=== PATIENT | female | born 1980 | race Caucasian/White ===

== ENCOUNTER 2020-11-03 09:50 | Outpatient (CLI) | payer OTHER, SELFPAY ==
--- NOTE | ~2020-11-03 | XR_ITS ---
EXAMINATION: XR abdomen/kub 1V INDICATION: Left ureteral stone TECHNIQUE: Supine view of the abdomen is obtained COMPARISON: None FINDINGS: There are at least five left kidney stones which measure up to 3 mm. At least three stones are seen in the lower pole of the right kidney which measure up to 3 mm. There are multiple phlebolit hs in the pelvis. A 4 mm calcification projects at the expected location of the left distal ureter. T he bowel gas pattern is normal. IMPRESSION: 1. 4 mm calcification of the left pelvis which could be a phlebolith or within the distal ureter. 2. Bilateral nephrolithiasis. Reviewed, dictated and finalized at location A. ING ENFORCER
== END 2020-11-03 09:51 | disposition home or self-care (01) ==
LOC: ANHIMG 09:56
PROVIDERS: Visit Provider Urology
DX: N20.2 Calculus of kidney with calculus of ureter (principal)
CPT/HCPCS: 74018

== ENCOUNTER 2021-03-06 08:29 | Outpatient (CLI) | payer OTHER, SELFPAY ==
--- NOTE | ~2021-03-06 | MM_ITS ---
EXAMINATION: MM screening edouard BI w lamont HISTORY: Baseline screening mammogram TECHNIQUE: Craniocaudal and mediolateral oblique 3-D tomosynthesis images were obtained and synthetic 2-D images were generated. CAD analysis was submitted and interpreted. COMPARISON: None, baseline BREAST PARENCHYMAL COMPOSITION: There are scattered areas of fibroglandular density. FINDINGS: There is no evidence of suspicious mass, calcification, or architectural distortion to sugg est malignancy in either breast. IMPRESSION: 1. No mammographic evidence of malignancy. 2. Recommend routine screening mammography in one year. BI-RADS Category 1: Negative Reviewed, dictated and finalized at location A.
== END 2021-03-06 08:30 | disposition home or self-care (01) ==
PROVIDERS: Visit Provider Nurse Practitioner
DX: Z12.31 Encounter for screening mammogram for malignant neoplasm of breast (principal)
CPT/HCPCS: 77063; 77067

== ENCOUNTER → 2022-06-14 09:11 | Outpatient (CLI) | payer OTHER, SELFPAY ==
--- NOTE | ~2022-06-14 | US_ITS ---
EXAMINATION: US retroperitoneal comp DATE: 06/14/2022 09:35 INDICATION: Calculus of ureter TECHNIQUE: Multiple ultrasound grayscale images of the kidneys were obtained. COMPARISON: None. FINDINGS: The right kidney measures 10.8 x 5.1 x 5.0 cm. The left kidney measures 10.8 x 5.3 x 4.1 cm. The kidn eys demonstrate normal echogenicity. There is no hydronephrosis in either kidney. No shadowing stone s identified. Several small stones seen on subsequent KUBs are likely too small to be visualized on u ltrasound. The bladder is normal. IMPRESSION: 1. Normal kidneys without hydronephrosis. Nephrolithiasis evident on subsequent KUB not evident on t he current study likely due to the small size of the stones. Reviewed, dictated and finalized at location A. IMPRESSION: 1. Normal kidneys without hydronephrosis. Nephrolithiasis evident on subsequen t KUB not evident on the current study likely due to the small size of the ston es.
--- NOTE | ~2022-06-14 | XR_ITS ---
EXAMINATION: XR abdomen/kub 1V DATE: 06/14/2022 09:37 INDICATION: Calculus of ureter TECHNIQUE: A supine view of the abdomen on 2 radiographs was obtained. COMPARISON: 11/03/2020 FINDINGS: And seen are multiple small stones at both kidneys. There are at least 10 stones in the left kidney t he largest measuring up to 3-4 mm. There are at least 4 stones in the lower right kidney measuring up to 3 mm although sensitivity for tiny stones is decreased in the right due to multiple stool and gas in the superimposed colon. Multiple unchanged phleboliths in the pelvis. There is a new more irregul ar appearing 4 mm density in the left hemipelvis located along a cluster of phleboliths which is susp icious for a distal left ureteral stone. No dilated loops of bowel to suggest obstruction. IMPRESSION: 1. Bilateral nephrolithiasis and possible 4 mm distal left ureteral stone. Reviewed, dictated and finalized at location A.
== END ==
PROVIDERS: PCP Urology; Visit Provider Urology
DX: N20.1 Calculus of ureter (principal)
CPT/HCPCS: 74018; 76770

== ENCOUNTER 2023-08-05 13:06 | Outpatient (CLI) | payer OTHER, SELFPAY ==
--- NOTE | ~2023-08-05 | XR_ITS ---
EXAMINATION: XR abdomen/kub 1V INDICATION: Left ureteral stone TECHNIQUE: Supine views of the abdomen were obtained on 2 radiographs. COMPARISON: 06/14/2022 FINDINGS: There are at least eight stones of the left kidney which measure up to 4 mm. There are at l east three stones of the right kidney which measure up to 3 mm. No stones are identified along the ex pected courses of the ureters or within the urinary bladder. There are phleboliths of the pelvis. The bowel gas pattern is normal. The visualized lung bases are clear. IMPRESSION: 1. Bilateral nephrolithiasis. Reviewed, dictated and finalized at location B.
== END 2023-08-05 13:07 | disposition home or self-care (01) ==
PROVIDERS: Visit Provider Urology
DX: N20.1 Calculus of ureter (principal)
CPT/HCPCS: 74018

== ENCOUNTER → 2023-10-01 08:22 | Outpatient (CLI) | payer OTHER, SELFPAY ==
--- NOTE | ~2023-10-01 | MM_ITS ---
EXAMINATION: MM screening edouard BI w lamont HISTORY: Screening TECHNIQUE: Craniocaudal and mediolateral oblique 3-D tomosynthesis images were obtained and synthetic 2-D images were generated. CAD analysis was submitted and interpreted. COMPARISON: 03/06/2021 BREAST PARENCHYMAL COMPOSITION: There are scattered areas of fibroglandular density. FINDINGS: There are new asymmetries in the central aspect of the left breast on CC view. The right br east is stable without evidence for malignancy. IMPRESSION: 1. New left breast asymmetries. 2. Additional mammographic views and possible breast ultrasound are recommended. BI-RADS Category 0: Incomplete: Needs additional imaging evaluation. Reviewed, dictated and finalized at location A. 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 New left breast asymmetries. 2. Additional mammographic views and possible breast ultrasound are recommended . BI-RADS Category 0: Incomplete: Needs additional imaging evaluation.
== END ==
PROVIDERS: PCP Obstetrics & Gynecology Gynecology; Visit Provider Obstetrics & Gynecology Gynecology
DX: Z12.31 Encounter for screening mammogram for malignant neoplasm of breast (principal); R92.8 Other abnormal and inconclusive findings on diagnostic imaging of breast
CPT/HCPCS: 77063; 77067

== ENCOUNTER → 2023-10-21 08:46 | Outpatient (CLI) | payer OTHER, SELFPAY ==
--- NOTE | ~2023-10-21 | MM_ITS ---
EXAMINATION: MM diagnostic edouard LT w lamont HISTORY: New left breast mammographic asymmetries reported in central aspect of left breast on screen ing craniocaudal view of 10/01/2023 TECHNIQUE: Additional 3-D tomosynthesis images of the left breast were performed and synthetic 2-D im ages were generated. CAD analysis was submitted and interpreted. COMPARISON: 10/01/2023ilateral screening mammogram FINDINGS: The asymmetries reported in the central aspect of the left breast on screening critical vie w of 10/01/2023 are no longer present on coned compression view of this area. No suspicious mass or ar chitectural distortion, microcalcifications, skin thickening or retraction is detected. IMPRESSION: 1. No mammographic evidence of malignancy 2. Routine mammographic screening is recommended BI-RADS Category 1: Negative Reviewed, dictated and finalized at location A. ALARM INSPECTOR
== END ==
PROVIDERS: PCP Obstetrics & Gynecology Gynecology; Visit Provider Obstetrics & Gynecology Gynecology
DX: R92.8 Other abnormal and inconclusive findings on diagnostic imaging of breast (principal)
CPT/HCPCS: 77061; 77065; G0279

== ENCOUNTER 2025-01-30 08:41 | Outpatient (CLI) | payer OTHER, SELFPAY ==
--- NOTE | ~2025-01-30 | MMUS_ITS ---
EXAMINATION: MM diagnostic edouard BI w lamont, US breast BI complete HISTORY: Bilateral breast palpable lumps TECHNIQUE: Additional 3-D tomosynthesis images of the breasts were performed and synthetic 2-D images were generated. CAD analysis was submitted and interpreted. High resolution bilateral complete breas t ultrasound was performed. COMPARISON: Comparison to multiple prior studies sequentially, with oldest reviewed study dated 03/06. BREAST PARENCHYMAL COMPOSITION: Dense: The breasts are heterogeneously dense, which may obscure small masses FINDINGS: MAMMOGRAPHIC FINDINGS: The breasts are stable. No new masses, calcifications or architectural distortion in this suggest mal ignancy. ULTRASOUND: Complete US of all 4 quadrants of the breast/s and retroareolar region was reviewed. In the right milvia ast at 11:00, 4 cm from the nipple there is a normal 11 mm intramammary lymph node. No suspicious mas ses in either breast to suggest malignancy. IMPRESSION: 1. No evidence for malignancy in either breast. 2. Routine yearly screening mammogram and regular clinical breast examination are recommended. BI-RADS Category 2: Benign finding(s). Reviewed, dictated and finalized at location A. IMPRESSION: 1. No evidence for malignancy in either breast. 2. Routine yearly screening mammogram and regular clinical breast examination a re recommended. BI-RADS Category 2: Benign finding(s).
== END 2025-01-30 08:42 | disposition home or self-care (01) ==
LOC: MICIMG 08:42
PROVIDERS: PCP Nurse Practitioner; Visit Provider Nurse Practitioner
DX: N63.10 Unspecified lump in the right breast, unspecified quadrant (principal); N63.20 Unspecified lump in the left breast, unspecified quadrant
CPT/HCPCS: 76641; 77062; 77066; G0279

== ENCOUNTER 2025-03-07 11:40 | Emergency (ER) | payer OTHER, SELFPAY ==
[2025-03-07 11:52] VITALS: BP 117/80; PULSE 95; RESP 16; TEMP 36.8; O2SAT 100
--- NOTE | 2025-03-07 12:19 | ED_ITS ---
HPI - Skin/Abscess/Foreign Bdy General Chief complaint: Skin/Abscess/Foreign Body Stated complaint: Skin Irritation Time Seen by Provider: 03/07/25 12:19 Source: patient, RN notes reviewed and old records reviewed Mode of arrival: ambulatory Limitations: no limitations History of Present Illness HPI narrative: 45-year-old female presents to the [facility] with a rash to the right axilla area. States it is a burning itching sensation. Started 4 days ago. Has been using cortisone cream without relief. Onset (ago): day(s) (4) Related Data Home Medications Medication Instructions Recorded Confirmed Last Taken Type buspirone 15 mg tablet 15 mg PO BID 09/15/19 03/07/25 Unknown History spironolactone 100 mg tablet 100 mg PO DAILY 09/15/19 03/07/25 Unknown History Allergies Allergy/AdvReac Type Severity Reaction Status Date / Time amoxicillin Allergy Unknown Rash Verified 03/07/25 11:52 codeine Allergy Unknown Unknown Verified 03/07/25 11:52 Review of Systems Review of Systems: All systems reviewed & are unremarkable except as noted in HPI and below Constitutional: Constitutional: Reports no additional constitutional complaints ENT: Reports system reviewed and no additional complaints, except as documented Cardiovascular: Cardiovascular: Reports no additional cardiovascular complaints, Denies chest pain and Denies dyspnea Respiratory: Respiratory: Reports no additional respiratory complaints, Denies chest congestion, Denies cough and Denies dyspnea Musculoskeletal: Musculoskeletal: Reports no additional musculoskeletal complaints Integumentary/Breasts: Skin/Breast: Reports as per HPI PMFSH Family History Family History Father Family history of premature coronary heart disease, Onset Age: 60 Hypertension Family history of elevated blood lipids Family history of alcoholism Patient's father is Social History Social History Smoking status: Never smoker Alcohol intake: never Comments At the time of my signature, I reviewed and agree with the nursing past medical, surgical, social, and family history. There is no relevant family history pertinent to the patient complaint. Exam Const: General: cooperative, healthy appearing, comfortable, no acute distress, well developed, alert and well nourished Nutritional Appearance: well nourished Orientation/consciousness: patient oriented x3 Limitations: no limitations HENMT: Head: normal to inspection Eyes: General: appearance normal, both eyes and all related structures Alignment and Position: alignment normal Neck: Neck: normal visual inspection, full ROM, no lymphadenopathy and no meningeal signs Chest: Chest palpation & inspection: normal inspection of the chest Resp: Effort & Inspection: normal respiratory effort and able to speak in complete sentences Auscultation: clear to auscultation bilaterally, no crackles, no rales, no rhonchi and no wheezes Cardio: Rate: regular rate Skin: General skin exam: normal color and no rashes or lesions noted Lesions: lesion noted ( Right axilla, vesicular lesions) Neuro: General: patient oriented x3, gait normal, moves all extremities and no meningeal signs Cognition (Neuro): normal cognition Speech: normal speech Gait exam (Neuro): Normal gait present Extrem: General: normal to inspection, full ROM, capillary refill normal and normal gait Psych: Appearance: grossly normal and well kempt Mental Status: mental status grossly normal Speech and movement: Normal speech and movement present and Clear speech present Affect: normal affect Attitude: cooperative Course Course Level of Care: Express Care Visit Vital Signs Vital signs: Vital Signs Temperature 98.3 F 03/07/25 11:52 Pulse Rate 95 03/07/25 11:52 Respiratory Rate 16 03/07/25 11:52 Blood Pressure 117/80 03/07/25 11:52 Pulse Oximetry 100 03/07/25 11:52 Temperature 98.3 F 03/07/25 11:52 Pulse Rate 95 03/07/25 11:52 Respiratory Rate 16 03/07/25 11:52 Blood Pressure 117/80 03/07/25 11:52 Pulse Oximetry 100 03/07/25 11:52 Reviewed MDM - Skin/Abscess/Foreign Bdy MDM Narrative Medical decision making narrative: patient sitting in exam. Patient is nontoxic, vitals are stable. Patient presents with a rash to the right axilla consistent with shingles. Discussed signs and symptoms, importance of staying away from S people that are very old, very young, or immunocompromised offered antiviral but out of the 3 day window these are less effective, she declined at this time patient appropriate for outpatient treatment with close follow Differential Diagnosis Differential diagnosis: Likely abscess of skin or subcutaneous tissue, viral exanthem, urticaria, herpes zoster, cellulitis, eczema, insect bites, impetigo and contact dermatitis Critical Care Time Critical Care Time Critical Care Time: No Discharge Plan Discharge Clinical Impression: Shingles rash Qualifiers: Herpes zoster complications: without complications Qualified Code(s): B02.9 - Zoster without complications Patient Disposition: Home Condition: Stable Instructions: Antibiotic Form, Shingles (ED) Additional Instructions: keep area clean and dry. Wash with warm soapy water. Pat dry. Take Tylenol as needed for pain follow-up with primary care provider please read handout given in regards to shingles Patient Language: Zambian Prescriptions: No Action spironolactone 100 mg Tablet 100 mg PO DAILY buspirone 15 mg Tablet 15 mg PO BID Follow-up/Referrals: PHYSICIAN,CAMERA CONTROL OPERATOR [Primary Care Provider] - Stand Alone Forms: Work/School Release IP Time of Disposition: 12:32
== END 2025-03-07 12:38 | disposition home or self-care (01) ==
PROVIDERS: Emergency Provider Nurse Practitioner
DX: B02.9 Zoster without complications (principal); Z79.899 Other long term (current) drug therapy
CPT/HCPCS: 99211; G0463

== ENCOUNTER 2025-04-08 08:21 | Emergency (ER) | payer OTHER, SELFPAY ==
--- NOTE | 2025-04-08 08:24 | ED_ITS ---
HPI - Female Genitourinary General Chief complaint: Urogenital-Female Stated complaint: UTI SYMPTOMS Time Seen by Provider: 04/08/25 08:45 Source: patient, RN notes reviewed and old records reviewed Mode of arrival: ambulatory Limitations: no limitations History of Present Illness HPI Narrative: 45-year-old female presents to the [facility] with complaints of 1 day history frequency and urgency as well as lower abdominal pressure. Denies any abdominal pain. No CVA tenderness. Denies fevers. Denies nausea vomiting. Reports that she was treated with Macrobid last week through telehealth for a UTI. States she was better for 3 days and symptoms have returned. Related Data Home Medications ?Medication ?Instructions ?Recorded ?Confirmed ?Last Taken ?Type buspirone 15 mg tablet 15 mg PO BID 09/15/19 04/08/25 Unknown History spironolactone 100 mg tablet 100 mg PO DAILY 09/15/19 04/08/25 Unknown History Allergies Allergy/AdvReac Type Severity Reaction Status Date / Time amoxicillin Allergy Unknown Rash Verified 04/08/25 08:31 codeine Allergy Unknown Unknown Verified 04/08/25 08:31 Review of Systems Review of Systems: All systems reviewed & are unremarkable except as noted in HPI and below Constitutional: Constitutional: Reports no additional constitutional complaints ENT: Reports system reviewed and no additional complaints, except as d ocumented Cardiovascular: Cardiovascular: Reports no additional cardiovascular complaints, Denies chest pain and Denies dyspnea Respiratory: Respiratory: Reports no additional respiratory complaints, Denies chest congestion, Denies cough and Denies dyspnea Genitourinary: Genitourinary: Reports as per HPI Musculoskeletal: Musculoskeletal: Reports no additional musculoskeletal compla ints Integumentary/Breasts: Skin/Breast: Reports system reviewed and no additional complaints, except as docu PMFSH Family History Family History Father Family history of premature coronary heart disease, Onset Age: 60 Hypertension Family history of elevated blood lipids Family history of alcoholism Patient's father is Social History Social History Smoking status: Never smoker Alcohol intake: never Comments At the time of my signature, I reviewed and agree with the nursing past medical, surgical, social, and family history. There is no relevant family history pertinent to the patient complaint. Exam Const: General: cooperative, healthy appearing, comfortable, no acute distress, well developed, alert and well nourished Nutritional Appearance: well nourished Orientation/consciousness: patient oriented x3 Limitations: no limitations HENMT: Head: normal to inspection Eyes: General: appearance normal, both eyes and all related structures Alignment and Position: alignment normal Neck: Neck: normal visual inspection, full ROM, no lymphadenopathy and no meningeal signs Chest: Chest palpation & inspection: normal inspection of the chest Resp: Effort & Inspection: normal respiratory effort and able to speak in complete sentences Auscultation: clear to auscultation bilaterally, no crackles, no rales, no rhonchi and no wheezes Cardio: Rate: regular rate GI: GI Palp: No abdominal tenderness : General: Yes no CVA tenderness Skin: General skin exam: normal color and no rashes or lesions noted Neuro: General: patient oriented x3, gait normal, moves all extremities and no meningeal signs Cognition (Neuro): normal cognition Speech: normal speech Gait exam (Neuro): Normal gait present Extrem: General: normal to inspection, full ROM, capillary refill normal and normal gait Psych: Appearance: grossly normal and well kempt Mental Status: mental status grossly normal Speech and movement: Normal speech and movement present and Clear speech present Affect: normal affect Attitude: cooperative Course Course Level of Care: Express Care Visit Vital Signs Vital signs: Vital Signs Temperature 97.9 F 04/08/25 08:30 Pulse Rate 91 04/08/25 08:30 Respiratory Rate 16 04/08/25 08:30 Blood Pressure 110/82 04/08/25 08:30 Pulse Oximetry 100 04/08/25 08:30 Oxygen Delivery Room Air 04/08/25 08:30 Temperature 97.9 F 04/08/25 08:30 Pulse Rate 91 04/08/25 08:30 Respiratory Rate 16 04/08/25 08:30 Blood Pressure 110/82 04/08/25 08:30 Pulse Oximetry 100 04/08/25 08:30 Oxygen Delivery Room Air 04/08/25 08:30 Reviewed MDM - Female Genitourinary MDM Narrative Medical decision making narrative: Patient sitting in exam room. Patient is nontoxic, vitals are stable. Patient presents with urinary symptoms x1 day. Leukocytes noted in urine. Recently treated with Macrobid for 5 days, symptoms returned. Patient has an allergy to amoxicillin Will treat with Bactrim. Culture has been sent. Patient appropriate for outpatient treatment with close follow Discharge instructions reviewed with patient, as well as provided in writing per nursing staff. The instructions also include specific and strict return/GO TO THE ER as well as f/u information. All questions have been answered, and the patient deny any further questions with discharge and discharge plan. Some parts of this dictation were generated by voice recognition software and may contain typographical and/or grammatical inaccuracies. Differential Diagnosis Differential diagnosis: Likely urinary tract infection and cystitis Lab Data Labs: Lab Results 04/08/25 Range/Units 08:36 POC Urine Color Yellow POC Urine Clarity Cloudy POC Urine pH 7.0 POC Ur Specif [place] 1.020 POC Urine Protein 2+ (Negative) POC Ur Glucose (UA) Negative (Negative) POC Urine Ketones Negative (Negative) POC Urine Blood 2+ (Negative) POC Urine Nitrite Negative (Negative) POC Urine Bilirubin Negative (Negative) POC Urine Urobilinogen 0.2 POC U Leukocyte Esteras 3+ (Negative) Reviewed Critical Care Time Critical Care Time Critical Care Time: No Discharge Plan Discharge Clinical Impression: Urinary tract infection Qualifiers: Urinary tract infection type: acute cystitis Hematuria presence: with hematuria Qualified Code(s): N30.01 - Acute cystitis with hematuria Patient Disposition: Home Condition: Stable Instructions: Antibiotic Form, Urinary Tract Infection in Women (ED) Additional Instructions: Increased water intake Take Tylenol as needed for pain Take antibiotic as prescribed Today your urine dip showed a probability of a UTI. You have been prescribed an antibiotic. Your urine will be sent to our lab for a culture. If at that time a bacteria grows that is not covered by the antibiotic prescribed you will be notified. Follow-up with primary care For new or worsening symptoms go directly to the emergency room Patient Language: Surinamese Prescriptions: New sulfamethoxazole-trimethoprim [Bactrim DS] 800-160 mg tablet 1 tablet PO Q12H Qty: 10 0RF No Action spironolactone 100 mg Tablet 100 mg PO DAILY buspirone 15 mg Tablet 15 mg PO BID Follow-up/Referrals: Leesa Arnold MD [Primary Care Provider] - 1 Week (express care follow u ) Time of Disposition: 08:53
[2025-04-08 08:30] VITALS: BP 110/82; PULSE 91; RESP 16; TEMP 36.6; O2SAT 100
[2025-04-08 08:46] LABS: EDUAAPPEAR Cloudy; EDUABILI Negative (Negative); EDUABLOOD 2+ (Negative); EDUACOLOR1 Yellow; EDUAGLUCOSE Negative (Negative); EDUAKETONE Negative (Negative); EDUALEUKO 3+ (Negative); EDUANITRATE Negative (Negative); EDUAPROTEIN 2+ (Negative); EDUAUROBILI 0.2
== END 2025-04-08 08:59 | disposition home or self-care (01) ==
PROVIDERS: Emergency Provider Nurse Practitioner; PCP Obstetrics & Gynecology Gynecology
DX: N30.01 Acute cystitis with hematuria (principal)
CPT/HCPCS: 81003; 87086; 87186; 99213; G0463

== ENCOUNTER 2025-05-06 11:43 | Outpatient (CLI) | payer OTHER, SELFPAY ==
--- NOTE | ~2025-05-06 | US_ITS ---
Pelvic ultrasound. Clinical History: Abnormal uterine bleeding Technique: Realtime transabdominal scanning of the pelvis was performed. Color flow Doppler and Doppl er spectral analysis were performed. Findings: The uterus is anteverted. The endometrial stripe has a thickness of 8 mm. No focal mass is identified. The right ovary measures 1.9 x 1.5 x 1.5 cm. No significant right ovarian or adnexal mass is seen. The left ovary measures 3.3 x 2.2 x 2.5 cm. No significant left ovarian or adnexal mass is seen. There is no evidence of free fluid in the cul de sac. Impression: No significant abnormality seen. Reviewed, dictated and finalized at location . Impression: No significant abnormality seen.
== END 2025-05-06 11:44 | disposition home or self-care (01) ==
LOC: MICIMG 11:44
PROVIDERS: PCP Obstetrics & Gynecology Gynecology; Visit Provider Obstetrics & Gynecology Gynecology
DX: N93.8 Other specified abnormal uterine and vaginal bleeding (principal)
CPT/HCPCS: 76856

== ENCOUNTER 2025-06-03 02:25 | Day surgery (SDC) | payer OTHER, SELFPAY ==
[2025-05-22 16:47] VITALS: BMI 25.0
--- NOTE | 2025-05-22 16:52 | SUR.PREOP ---
Report to the Outpatient Waiting Room, entrance under the green pavilion located off [facility], at time 0615 on date 06/03/25. Planned Procedure Time: 08.? Time changes happen often and if your time is changed the preop area will call you the afternoon before. - You and your visitor will be asked to self-screen and do not enter if you have any COVID symptoms. Please call surgeon if you need to reschedule. - A mask is optional within the hospital at this time. Patients may have clear liquids (water, carbonated beverages, clear teas, apple juice) until 3 hours prior to surgery with a maximum of 20 ounces. - No food from midnight until time of surgery and no smoking, or chewing tobacco (or any form of nicotine). No chewing gum, candy or mints. - Infants may have breast milk until 4 hours before surgery, formula 6 hours prior to surgery. - Children will be allowed to drink immediately following surgery.? If applicable, please bring a bottle or sippy cup to assist with drinking. Juice, water, soda, and popsicles are readily available.? For infants on formula, please bring formula the day of surgery.? Pacifiers are allowed. Take only the following medications with a SIP of water on the morning of surgery: buspar DO NOT STOP ANY OF YOUR OTHER PRESCRIPTION MEDICATIONS PRIOR TO SURGERY EXCEPT THE FOLLOWING Hold all vitamins and supplements for 3 days per anesthesiologist. Medications to discontinue per physician hold all supplements and vitamins 3 days prior Date to take last dose Please no make-up, nail korean, hairspray, perfume, deodorant, or body powder the day of surgery.? No jewelry (including any body piercings) or valuables the day of surgery, leave them at home.? Please take a shower or bath the night before, or the morning of, surgery with an antibacterial soap.? Wear comfortable, loose fitting clothing.? Children are encouraged to wear pajamas. - Jewelry must be removed prior to entering the operating room.? Rings and piercings that are not removed may be cut off. - The hospital will not accept responsibility for valuables.? - Please leave all valuables, including medications, at home the day of surgery. If you are going home after surgery, a licensed regional otr company driver must drive you home.? - NO public transportation without another adult if you receive anesthesia. - We recommend that an adult stay with you for 24 hours following discharge. - We also recommend that you do not drive, make important decision, drink alcoholic beverages, or take any drugs that were not prescribed by your health care provider for at least 24 hours after your discharge time. For Pediatric surgeries, we recommend two adults accompany the child home. Follow any additional instructions given to you from your surgeon. Telephone instructions given to __patient__and asked if any additional questions and then verbalized understanding. Patient advised to call surgeon office or pre surgery nurse liaison [phone] if any additional questions.
--- OUTSIDE RECORDS SUMMARY | 2025-06-03 02:28 | XMS_ITS | Clinical Summary ---
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 Gender Identity Not on file Sexual Orientation Not on file Plan of Treatment Health Maintenance Due Date Last Done Comments Hepatitis C Virus (HCV) Screening 1980 Hepatitis B Immunization (1 of 3 - 19+ 3-dose series) 2000 Pap Smear 2002 Human Papillomavirus (HPV) Immunization (1 - 3-dose SCDM series) 2008 Cervical Cancer Screening (CCS) 2011 HPV/Cotest 2011 SARS-COV-2 Immunization ( season) 2024 10/08/2021, 01/14/2021, 12/17/2020 Influenza Immunization (#1) 2025 Respiratory Syncytial Virus (RSV) Immunization (Adult) (1 - 1-dose 75+ series) 2056 DTaP/Tdap/Td Immunization Discontinued 2018, 11/24/2015, 06/07/2005 TdaP Immunization Completed 09/15/2019, 11/24/2015 Meningococcal Immunization (ACWY) Aged Out No longer eligible based on patient's age to complete this topic Pneumococcal Immunization Combined Aged Out No longer eligible based on patient's age to complete this topic Rotavirus Immunization Aged Out No lo nger eligible based on patient's age to complete this topic
--- OUTSIDE RECORDS SUMMARY | 2025-06-03 02:28 | XMS_ITS | Clinical Summary ---
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 Gender Identity Not on file Sexual Orientation Not on file Plan of Treatment Health Maintenance Due Date Last Done Comments Cervical Cancer Screening Pa p Smear (Age 30 to 64) Every 3 Years 1981 Annual Physical 1984 Hepatitis C 1999 DTaP, Tdap and Td Vaccines ( 1 - Tdap) 2000 Hepatitis B Vaccines (1 of 3 - 19+ 3-dose series) 2000 HPV Vaccines (1 - 3-dose SCD M series) 2008 Cervical Cancer Screening Pa p with HPV Testing (Age 30 to 64) Every 5 Years 2011 Cervical Cancer Screening with HPV 2011 Mammogram Screening 2021 COVID-19 Vaccine (2023-2 5 season) 2024 Meningococcal B Vaccine Aged Out No l onger eligible based on patient's age to complete this topic Meningococcal Vaccine Aged Out No saad lashon eligible based on patient's age to complete this topic Pneumococcal Vaccine: Pediat rics (0 to 5 Years) and At-Risk Patients (6 to 49 Years) Aged Out No longer eligible b ased on patient's age to complete this topic RSV Immunizations Under 20 Months Aged Out No longer eligible based on patient's age to complete this topic Insurance [employer]ET[employer] [facility] Care Teams Natural Gas Technician Relationship Specialty Start Date End Date None, Provider, PCP - General 10/14/20
--- NOTE | 2025-06-03 07:18 | WPDHPUPDATE1 ---
History and Physical Update Update Date/Time: 06/03/25 07:18 History and Physical has been reviewed, including an updated exam of the patient. There are NO changes in the patient's condition. Risks, benefits, and alternatives have been discussed and questions answered. Patient agrees to proceed with procedure.
--- NOTE | 2025-06-03 07:19 | PM.HPGS ---
History of Present Illness History of Present Illness Consent: Risks, benefits, and alternatives have been discussed and questions answered. Patient agrees to proceed with procedure. Chief complaint: Menorrhagia Narrative: Karen Meyer is a 45 year old female with sporadic menses. In addition she was changing her menstrual cup every 6 to 8 hours. Pelvic ultrasound was normal. It was recommended to undergo further workup with D&C hysteroscopy. Risks infection, bleeding, perforation, and possible pathology are reviewed. Due to prior history of severe nausea after a procedure the patient was very hesitant to proceed. The patient did agree to proceed. She will discuss with Anesthesia as the possible medication options to decrease her nausea. Patient voices understanding and agrees to proceed Review of Systems Review of Systems: not repeated day of surgery; patient states no changes in status PMFSH Past Medical History Medical History (Updated 06/03/25 @ 07:22 by Leesa Arnold MD) (normal spontaneous vaginal delivery) X3 History of kidney stones Anxiety Surgical History Surgical History (Updated 06/03/25 @ 07:21 by Leesa Arnold MD) History of lithotripsy Family History Family History Father Family history of premature coronary heart disease, Onset Age: 60 Hypertension Family history of elevated blood lipids Family history of alcoholism Patient's father is Social History Social History Smoking status: Never smoker Alcohol intake: never Substance use type: marijuana Other substance usage details: recreational use Living arrangements: with family Meds Home Medications and Allergies Home Medications ?Medication ?Instructions ?Recorded ?Confirmed ?Type buspirone 15 mg tablet 15 mg PO BID 09/15/19 06/03/25 History spironolactone 100 mg tablet 100 mg PO DAILY 09/15/19 06/03/25 History Allergies Allergy/AdvReac Type Severity Reaction Status Date / Time amoxicillin Allergy Unknown Rash Verified 06/03/25 04:07 codeine Allergy Unknown Unknown Verified 06/03/25 04:07 Exam Const: General: healthy appearing and alert Orientation/consciousness: patient oriented x3 Resp: Effort & Inspection: normal respiratory effort : External Female Exam: normal external appearance Speculum Exam - Vagina: normal appearance of the vagina and normal vaginal discharge Speculum Exam - Cervix: normal appearance of the cervix Bimanual exam- vagina & uterus: uterine size normal and consistency normal Bimanual Exam- Adnexa, other: normal adnexae and No adnexal tenderness Neuro: General: patient oriented x3 Assessment and Plan Assessment and plan (1) Menorrhagia: Code(s): N92.0 - Excessive and frequent menstruation with regular cycle Status: Acute Assessment and Plan: Plan to proceed with D&C hysteroscopy
[2025-06-03] MEDS: LACTATED RINGERS 1,000 ML 30 ML IV CONT (07:30)
[2025-06-03 07:34] VITALS: BP 112/76; PULSE 58; RESP 16; TEMP 36.5; O2SAT 100; BMI 25.0
[2025-06-03] MEDS: MIDAZOLAM HCL (*CRX) 2 MG/2 ML VIAL IV PUSH (07:34)
[2025-06-03] MEDS: SCOPOLAMINE 1 MG PATCH 1 PATCH TRANSDERM (07:34)
[2025-06-03] MEDS: ACETAMINOPHEN 500 MG TABLET 1000 MG PO (07:34)
--- NOTE | 2025-06-03 07:37 | SUR.PREOP ---
pt arrived very anxious, hyperventilating, and crying to pre-op area. Patient is very concerned of becoming nauseated and vomiting after surgery.
[2025-06-03 07:38] LABS: BEDSIDEPREGUCG Negative (Negative)
--- NOTE | 2025-06-03 07:46 | WPDANESEPPF ---
Anes - Initial Pre Proc Eval Procedure: Operation Date: 06/03/25 08:15 Proposed Procedures p Hysteroscopy Dilation and Curettage - Leesa Arnold MD Date/Time: 06/03/25 07:46 Surgeon: Leesa Arnold MD Pre Op Diagnosis: Menorrhagia Patient Data Age: 45 Gender: F Height: 1.7 m Weight: 72.57 kg Last Vital Signs Temp 36.5 C 06/03/25 07:34 Pulse 58 L 06/03/25 07:34 Resp 16 06/03/25 07:34 BP 112/76 06/03/25 07:34 Pulse Ox 100 06/03/25 07:34 O2 Del Method Room Air 06/03/25 07:34 Allergies Allergy/AdvReac Type Severity Reaction Status Date / Time amoxicillin Allergy Unknown Rash Verified 06/03/25 07:33 codeine Allergy Unknown Unknown Verified 06/03/25 07:33 Home Medications ?Medication ?Instructions ?Recorded ?Confirmed ?Type buspirone 15 mg tablet 15 mg PO BID 09/15/19 06/03/25 History spironolactone 100 mg tablet 100 mg PO DAILY 09/15/19 06/03/25 History Laboratory Tests 06/03/25 07:34 POC Urine HCG, Qual Negative (Negative) Patient hx anesthesia problems: post op nausea/vomiting (severe) Family hx anesthesia problems: none Results Review: All pre-operative results and documents have been reviewed as part of the pre-operative evaluation. [facility] Past Medical History Medical History (Updated 06/03/25 @ 07:22 by Leesa Arnold MD) (normal spontaneous vaginal delivery) X3 History of kidney stones Anxiety Surgical History Surgical History (Updated 06/03/25 @ 07:21 by Leesa Arnold MD) History of lithotripsy Family History Family History Father Family history of premature coronary heart disease, Onset Age: 60 Hypertension Family history of elevated blood lipids Family history of alcoholism Patient's father is Social History Social History Smoking status: Never smoker Alcohol intake: never Substance use type: marijuana Other substance usage details: recreational use Living arrangements: with family Silvia Stone Final PreProcedure Day of Procedure 06/03/25 07:46 Patient weight: normal Heart: regular rate and rhythm Lungs: clear to auscultation and normal air movement Airway: Mallampati scale class II Neurological: alert and oriented Last oral intake: >/= 8 hours ASA classification: II Emergent: no Anesthetic plan: proceed Anesthesia type and monitoring: general GIVS and standard monitoring Results Review: All pre-operative results and documents have been reviewed as part of the pre-operative evaluation. Informed Consent: The patient's anesthetic plan and its attendant risks and benefits were discussed with the patient/family/POA. Questions were solicited and answers provided to the satisfaction of the patient/family/POA.
--- NOTE | 2025-06-03 08:20 | S_PTH ---
PATIENT: Karen Meyer LOC: [facility] U#:[id number] AGE/SX: 45/F ROOM: RE06/03/[address]: Leesa Arnold MD : 1980 BED: DIS: 06/03/2025 SPEC #: [id number] RECD: 06/03/25 10:30 STATUS: KATT RESoo #: [id number] ARCHIE: 06/03/25 08:[address]: Leesa Arnold DEPT: [facility] Surgical RECD BY: Bibi Riddle ENTERED: 06/03/25 10:30 SP TYPE: Surgical OTHR DR: FULL FASHIONED GARMENT KNITTER PHYSICIAN Tissues: A - Endometrial Curettings Procedures: Hematoxylin and Eosin Stain Gross and Microscopic Level 4
[2025-06-03] MEDS: KETOROLAC 30 MG/ML VIAL (*BKC) IV PUSH (08:26)
--- NOTE | 2025-06-03 08:27 | P.OP_ITS ---
Procedure Note - Detailed Date of Procedure 06/03/25 Pre-op Diagnosis Menorrhagia Post-op Diagnosis Same Procedure Performed D&C hysteroscopy Surgeon Leesa Arnold MD Anesthesia MAC Findings Uterus sounds to 7cm and appears grossly normal Description of Procedure The patient is taken to the operating room and placed under anesthesia in the dorsal lithotomy position. She was prepped and draped in the usual sterile fashion. [place] speculum was placed in the vagina and the cervix grasped on the anterior lip with a tenaculum. The uterus is sounded to 7cm. Diagnostic hysteroscope was placed and with no abnormalities noted it is removed. The sharp curette was then used to curette the endometrium until a good uterine cry was noted in all areas. All instruments were then removed. Sponge, needle, and instrument counts are correct per the OR staff. The patient was awakened from anesthesia and taken to recovery in stable condition. Estimated Blood Loss 5 Drains No Packing No Pathology Yes (Endometrial curettings) Complications No immediate complications Condition Stable Disposition PACU
[2025-06-03 08:30] VITALS: BP 105/65; PULSE 63; RESP 16; O2SAT 98
[2025-06-03 09:00] VITALS: BP 135/73; PULSE 53
[2025-06-03 09:25] VITALS: BP 127/60; PULSE 56
== END 2025-06-03 09:32 | disposition home or self-care (01) ==
PROVIDERS: Visit Provider Obstetrics & Gynecology Gynecology
PROC: 0U5B8ZZ Destruction of Endometrium, Via Natural or Artificial Opening Endoscopic (ICD-10-PCS; CPT 58563; principal; 2025-06-03 08:15)
DX: N92.0 Excessive and frequent menstruation with regular cycle (principal); F41.9 Anxiety disorder, unspecified; F12.90 Cannabis use, unspecified, uncomplicated; Z98.890 Other specified postprocedural states; Z87.442 Personal history of urinary calculi; Z82.49 Family history of ischemic heart disease and other diseases of the circulatory system
CPT/HCPCS: 58558; 88305; A9270; J1885; J2003; J2250; J2704; J3010; J7120

== ENCOUNTER 2025-06-03 03:59 | Emergency (ER) | payer OTHER, SELFPAY ==
--- OUTSIDE RECORDS SUMMARY | 2025-06-03 04:01 | XMS_ITS | Clinical Summary ---
Author Organization 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
--- OUTSIDE RECORDS SUMMARY | 2025-06-03 04:01 | XMS_ITS | Clinical Summary ---
Author Organization 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
[2025-06-03 04:08] VITALS: BP 124/88; PULSE 79; RESP 11; TEMP 36.7; O2SAT 100
[2025-06-03 04:09] VITALS: BP 124/88; PULSE 65; RESP 9; O2SAT 100
[2025-06-03 04:31] VITALS: BP 113/85; PULSE 64; RESP 14; O2SAT 100
--- NOTE | 2025-06-03 04:33 | ED_ITS ---
HPI - Anxiety General Chief Complaint: Anxiety Stated Complaint: anxiety attack Time Seen by Provider: 06/03/25 04:01 History of Present Illness HPI narrative: 45-year-old female presenting to the emergency department with an anxiety attack. She is scheduled for hysteroscopy with her OBGYN today for heavy menstrual cycles. Her appointment is at 6:15 a.m.. She states she is very anxious about the anesthesia and takes p.r.n. anxiety medications postop not take it before the appointment. Patient is visibly shaky and anxious. Not any acute distress, no other complaints. Related Data Home Medications ?Medication ?Instructions ?Recorded ?Confirmed ?Last Taken ?Type buspirone 15 mg tablet 15 mg PO BID 09/15/19 06/03/25 Unknown History spironolactone 100 mg tablet 100 mg PO DAILY 09/15/19 06/03/25 Unknown History Allergies Allergy/AdvReac Type Severity Reaction Status Date / Time amoxicillin Allergy Unknown Rash Verified 06/03/25 04:07 codeine Allergy Unknown Unknown Verified 06/03/25 04:07 Review of Systems Review of Systems: As reviewed above in HPI [facility] Family History Family History Father Family history of premature coronary heart disease, Onset Age: 60 Hypertension Family history of elevated blood lipids Family history of alcoholism Patient's father is Social History Social History Smoking status: Never smoker Alcohol intake: never Substance use type: marijuana Other substance usage details: recreational use Living arrangements: with family Exam Narrative: GENERAL: Visibly anxious and shaking, answering questions appropriately, not any distress HEAD: [Normocephalic, atraumatic.] EYES: [PERRLA and EOMI.] ENT: Nares clear, no rhinorrhea or epistaxis. Mucous membranes moist. NECK: Supple. CHEST: Symmetric chest rise, no tachypnea or dyspnea ABDOMEN: [Soft, nondistended], [nontender], [No rigidity or guarding] EXTREMITIES: Normal range of motion. [No edema.] SKIN: Warm, dry, no rash. NEURO: [No focal deficits]. Alert and oriented [x3.] PSYCH: Anxious Course Vital Signs Vital signs: Vital Signs Temperature 36.7 C 06/03/25 04:08 Pulse Rate 79 06/03/25 04:08 Respiratory Rate 11 L 06/03/25 04:08 Blood Pressure 124/88 06/03/25 04:08 Pulse Oximetry 100 06/03/25 04:08 Oxygen Delivery Room Air 06/03/25 04:08 Temperature 36.7 C 06/03/25 04:08 Pulse Rate 64 06/03/25 04:31 Respiratory Rate 14 06/03/25 04:31 Blood Pressure 113/85 06/03/25 04:31 Pulse Oximetry 100 06/03/25 04:31 Oxygen Delivery Room Air 06/03/25 04:08 MDM - Anxiety MDM Narrative Medical decision making narrative: 45-year-old female presenting to the emergency department with an anxiety attack. She is scheduled for hysteroscopy with her OBGYN today for heavy menstrual cycles. Her appointment is at 6:15 a.m.. She states she is very anxious about the anesthesia and takes p.r.n. anxiety medications postop not take it before the appointment. Patient is visibly shaky and anxious. Not any acute distress, no other complaints. Patient is not in any acute distress with normal vital signs without any tachypnea or tachycardia. She is visibly anxious. States she no longer wants to go through with the procedure this morning. Offered medications for anxiety and she was given hydroxyzine 25 mg p.o. and placed on a monitor for evaluation. No indications for laboratory studies or workup at this time. Patient felt much improved after the Atarax. She is safe for discharge home at this time. She still verbalizes that she does not want to go through with the procedure but she will talk with her team this morning during her appointment if she wishes to go. Safe for discharge from the ER perspective. Medical Records Attestation: I reviewed the patient's medical records. Discharge Plan Discharge Clinical Impression: Acute anxiety Patient Disposition: Home Condition: Stable Instructions: Antibiotic Form Patient Language: Sammarinese Prescriptions: No Action spironolactone 100 mg Tablet 100 mg PO DAILY Patient Comments: takes at HS buspirone 15 mg Tablet 15 mg PO BID Follow-up/Referrals: PHYSICIAN,TECHNOLOGY SPECIALIST [Primary Care Provider] - Time of Disposition: 05:26
[2025-06-03 06:55] VITALS: BP 109/88; PULSE 63; RESP 15; TEMP 36.6; O2SAT 100
== END 2025-06-03 05:43 | disposition home or self-care (01) ==
PROVIDERS: Emergency Provider Student in an Organized Health Care Education/Training Program
DX: F41.9 Anxiety disorder, unspecified (principal)
CPT/HCPCS: 99283; A9270